=== PATIENT | female | born 1970 | race African-American/Black ===

== ENCOUNTER 2016-05-24 18:00 | Emergency (ER) | payer OTHER ==
[2016-05-24] MEDS ORDERED: ONDANSETRON HCL/PF 4 MG/ 2ML VIAL IVP ONE (18:15)
[2016-05-24] MEDS ORDERED: 0.9 % SODIUM CHLORIDE 1,000 ML IV ONE (18:15)
[2016-05-24] MEDS ORDERED: CloNIDine HCL 0.1 MG TABLET PO ONE (18:35)
[2016-05-24] MEDS ORDERED: DIAZEPAM 5 MG/ML DISP.SYRIN IVP ONE (18:35)
[2016-05-24 19:14] LABS: EOSINOPHILS % 4.4 % (0.0-6.8); LYMPHOCYTES # 1.6 # k/uL (0.6-4.0); MEAN CORPUSCULAR HEMOGLOBIN 28.2 pg (28.0-34.0); MONOCYTES # 0.2 # k/uL (0.0-0.9); MONOCYTES % 6.3 % (0.0-11.0); NEUTROPHILS # 1.8 # k/uL (1.4-7.7)
--- NOTE | 2016-05-24 19:17 | ED Physician Documentation ---
Low Back Pain - HISTORIAN Historian: patient - HPI Stated Complaint: low back pain;polyuria, and nausea Chief Complaint: Low Back Pain/ Injury History: back pain. denies: history of chronic pain: Duration: continues in ED Recent Injury: No Severity: severe Worsened By:: supine Relieved By: nothing Further Comments: yes (45 year old female patient presents with low back pain for the past 3-4 days, c/o increased urination. Patient states she has not taken her BP medications in the past "few months". Denies fever, nausea, vomiting, heavy lifting, fall or injury.) - ROS CONST: no problems CVS/RESP: none EYES/ENT: none MS/SKIN/LYMPH: none Neuro/Psych: none GI/: denies: abdominal pain - PAST HX Other History: other (depression, HTN) Surgeries/Procedures: none - SOCIAL HX Smoking History: non-smoker Alcohol Use: none Drug Use: none - FAMILY HX Family History: cardiac disease - REVIEWED ASSESSMENTS Nursing Assessment Reviewed: Yes Vitals Reviewed: Yes <ROCK VANCE - Last Filed: 05/24/16 19:13> - PAST HX Past History: other (HTN) <Will Craig - Last Filed: 05/25/16 00:23> - PAST HX Allergies/Adverse Reactions: Allergies Allergy/AdvReac Type Severity Reaction Status Date / Time NSAIDS (Non-Steroidal Allergy Verified 05/24/16 19:01 Anti-Inflamma Home Medications: Ambulatory Orders Medication Instructions Recorded NK [NK] 05/24/16 - VITAL SIGNS Vital Signs: Vital Signs Temp Pulse Resp BP Pulse Ox 98.5 F 95 H 16 203/115 99 05/24/16 18:05 05/24/16 18:05 05/24/16 18:05 05/24/16 18:05 05/24/16 18:05 (ROCK VANCE) (Will Cragi) Progress <ROCK VANCE - Last Filed: 05/24/16 19:13> <Will Craig - Last Filed: 05/25/16 00:23> - Progress Progress: [address] Craig (ROCK VANCE) CT Lumbar Spine: The L1-2, L2-3, L3-4, and L5-S1 intervertebral discs are within normal limits. L5 is partially sacralized on the right. Degenerative sclerosis is observed at the articulation between the right L5 transverse process and the right sacral ala. At L4-5 there is posterior central disc protrusion without central canal stenosis or lateralization. (Pt's pain appeared to be above the L4-5 level, at L1-2.) Clonidine 1 mg po Norvasc 5 mg po HCTZ 25 mg po BP 203/115-->154/103. Will re start bp meds. Noti (5/325) 2 tabs po in ER back pain improved. Rx Norvasc 5 mg po qd #30, RF 5 Rx HCTZ 25 mg po qd #30, RF 5 Rx Noti (5/325) 1-2 po q 4-6 h prn # 15. f/u pcp/ortho/neuro re CT (Will Craig) Low Back Pain/Injury - Physical Exam General Appearance: mild distress EENT: eye inspection normal, ENT inspection normal, pharynx normal, no signs of dehydration, MICHELE, no nystagmus, TM's nml Resp/CVS: chest non-tender, breath sounds nml, heart sounds nml, no resp. distress, lungs clear, reg. rate & rhythm Abdomen: non-tender, no organomegaly, no pulsatile mass Back: vertebral point-tendernes (Lumbar, ), muscle spasm. No: CVA tenderness ( negative right and left) Straight Leg Raising: Negative Left, Positive Right Neuro/Psych: oriented x3, motor nml, sensation nml, bilat. 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 Take 1 or 2 tablets by mouth every 4 to 6 hrs as needed for moderate to severe pain. Rx Norvasc 5 mg. Take one by mouth one time daily. Rx Hydrochlorothiazide 25 mg. Take one by mouth one time daily. Home Medications: Ambulatory Orders NK [NK] 05/24/16 Condition: Good Disposition: HOME, SELF-CARE
[2016-05-24 19:26] LABS: eGFR (African) > 60; eGFR (Non-African) > 60
[2016-05-24] MEDS ORDERED: amLODIPine BESYLATE 5 MG TABLET PO ONE (19:27)
[2016-05-24] MEDS ORDERED: HYDROCHLOROTHIAZIDE 25 MG TABLET PO SCH ×2 (20:00→21:00)
[2016-05-24] MEDS ORDERED: HYDROcodone /APAP 5/325 1 EACH TABLET PO STA (20:37)
[2016-05-24] MEDS ORDERED: HYDROCHLOROTHIAZIDE 25 MG TABLET PO ONE (21:05)
[2016-05-25 02:20] VITALS: BP 166/114
[2016-05-25 06:06] LABS: APPEARANCE,URINE CLEAR (CLEAR); COLOR,URINE YELLOW (YELLOW)
[2016-05-25 06:07] LABS: OCCULT BLOOD,URINE TRACE-INTACT (NEGATIVE)
--- NOTE | 2016-05-25 06:35 | Diagnostic Imaging Report ---
Report Submission Date: May 24, 2016 8:13:24 PM SENIOR FIELD SERVICE ENGINEER Patient ~ Study Name: ROMERO QUIGLEY ~ Date: May 24, 2016 6:54:15 PM SENIOR FIELD SERVICE ENGINEER ~ Modality Type: CT\SR Gender: F ~ Description: CT L-SPINE W/O CONTRAS : 74 ~ Institution: [facility] Physician: PINKY AGUILAR ~ ~ ~ ~ Computed tomography of the lumbar spine without contrast HISTORY: ~ Low back pain and right lower extremity pain FINDINGS: ~ Transverse lumbar spine sections are obtained without contrast from which multiplanar reformatted images are generated. ~ The L1-2, L2-3, L3-4, and L5-S1 intervertebral discs are within normal limits. ~ L5 is partially sacralized on the right. ~Degenerative sclerosis is observed at the articulation between the right L5 transverse process and the right sacral ala. ~ At L4-5 there is posterior central disc protrusion without central canal stenosis or lateralization. IMPRESSION: ~ Posterior central L4-5 disc protrusion. ~ Partially sacralized L5 with degenerative change at the right L5-S1 articulation. ~ Electronically signed on May 24, 2016 8:13:24 PM SENIOR FIELD SERVICE ENGINEER by: Ted CASTORENA
== END 2016-05-24 22:15 | disposition home or self-care (01) ==
LOC: ED 18:00
DX: M54.5 Low back pain (principal); I10 Essential (primary) hypertension
CPT/HCPCS: 72131; 80053; 85025; A9270; J2405; J3360; J7030; 81002; 81025; 96374; 96375; 99283; S1016

== ENCOUNTER 2016-07-15 20:51 | Emergency (ER) | payer OTHER ==
--- NOTE | 2016-07-15 21:30 | Diagnostic Imaging Report ---
LILI AVILES [facility] [address] [facility].[address] [address] Report Submission Date: Jul 15, 2016 9:27:33 PM IRRIGATOR GRAVITY FLOW Patient Study Name: ROMERO QUIGLEY Date: Jul 15, 2016 9:13:05 PM IRRIGATOR GRAV[employer]OW Modality Type: CR Gender: F Description: LOWER EXTREMITY : 74 Institution: [facility] Physician: LILI AVILES Left calcaneus 2 views Exam: July 15, 2016. Clinical history: Left heel pain for 4 weeks. Findings: There is soft tissue swelling and edema of the left heel. The calcaneus is intact. No osseous erosion or fracture is identified. The talus and tibiotalar alignment are normal. Impression: Soft tissue swelling and edema of the left heel without evidence of osseous abnormality. Electronically signed on Jul 15, 2016 9:27:33 PM IRRIGATOR GRAVITY FLOW by: Nubia CASTORENA
[2016-07-15] MEDS ORDERED: predniSONE 20 MG TABLET PO ONE (21:40)
[2016-07-15 21:55] VITALS: BP 214/129
--- NOTE | 2016-07-16 02:04 | ED Physician Documentation ---
Lower Extremity Problem - HISTORIAN Historian: patient - HPI Stated Complaint: left heal pain Chief Complaint: Lower Extremity Problem Additional Information: x 1 month Location of Injury: L foot (heel) Onset: days ago (30) Timing: still present Duration: constant, sudden-Onset Recent Injury: No Where: other (all daily life) Severity: moderate Quality: pain, tenderness Exacerbated By: walking Relieved By: rest (rest helps but does not eliminate the problem) Associated Symptoms: denies: chest pain, shortness of breath, rapid heart rate, fainting Further Comments: no - ROS CONST: no problems MS/SKIN/LYMPH: other (pain and tenderness left calcaneal area) CVS/RESP: none GI/: none EYES/ENT: none NERUO/PSYCH: denies: headache, difficulty walking, dizziness, anxiety, depression - PAST HX Past History: none PE Risk Factors: hypertension Other History: hypertension Surgeries/Procedures: none Immunizations: referred to PCP Allergies/Adverse Reactions: Allergies Allergy/AdvReac Type Severity Reaction Status Date / Time NSAIDS (Non-Steroidal Allergy Verified 07/15/16 20:57 Anti-Inflamma Home Medications: Ambulatory Orders Medication Instructions Recorded NK [NK] 05/24/16 - SOCIAL HX Smoking History: non-smoker Alcohol Use: none Drug Use: none - FAMILY HX Family History: no significant history - VITAL SIGNS Vital Signs: Vital Signs Temp Pulse Resp BP Pulse Ox 78 16 214/129 99 07/15/16 21:54 07/15/16 21:54 07/15/16 21:54 07/15/16 21:54 - REVIEWED ASSESSMENTS Nursing Assessment Reviewed: Yes Vitals Reviewed: Yes Progress - Results/Orders Results/Orders: left foot x-ray ordered - Progress Progress: pt stable entire time in er, given 20 mg prednisone p.o. in er Critical Care Note - Critical Care Note Total Time (mins): 0 ED Results Lab/Radiology - Lab Results Lab Results: none ordered - Radiology Radiology Impressions: x-ray neg for abnormality - Orders Orders: ED Orders Category Date Time Status LEFT HEEL [CALCANEUS 2 VIEWS OR MORE] [RAD] Stat Exams 07/15/16 Completed predniSONE [Deltasone] Med 07/15/16 21:40 Discontinued 20 mg PO NOW ONE Lower Extremity Problem - EXAM General Appearance: moderate distress Hips: bilateral hip: non-tender, normal inspection, normal range of motion, no evidence of injury Legs: bilateral: non-tender, normal inspection, normal range of motion, no evidence of injury Knees: bilateral: non-tender, normal inspection, normal range of motion, no evidence of injury Ankle: bilateral: non-tender, normal inspection, normal range of motion, no evidence of injury Foot: left foot: no evidence of injury, soft tissue tenderness (plantar calcaneal aspect), other (no achilles tenderness, no edema, no ligament laxity) DTR - Lower Extremities: knee (R): 2+, knee (L): 2+, ankle (R): 2+, ankle (L): 2 + Neuro/Tendon: normal motor functions, normal tendon functions EENT: eye inspection normal, ENT inspection normal, pharynx normal, no signs of dehydration, MICHELE, no nystagmus, TM's nml RESPIRATORY: no resp distress, chest non-tender, breath sounds normal CVS: reg rate & rhythm JOINT: joints nml, nml ROM VASCULAR: no vascular compromise, pulses full/equal NEURO/PSYCH: oriented X3, CN's nml as tested SKIN: warm/dry, normal color BACK: normal inspection, no CVA tenderness Discharge Clincal Impression: Plantar fasciitis, left Referrals: Jese Tyler MD [Primary Care Provider] - 2 Days Home Medications: Ambulatory Orders NK [NK] 05/24/16 Comments: Discharged with script for prednisone taper 60 mg to 0 mg decreasing by 10 mg/ day over 6 days. Also given script for crutches for 1 week. Clonidine 0.1 mg p.o. daily #15. Follow up with primary care for htn. Condition: Stable Disposition: 01 HOME, SELF-CARE Decision to Admit: NO Decision Time: 21:45
== END 2016-07-15 21:50 | disposition home or self-care (01) ==
LOC: ED 20:51
DX: M72.2 Plantar fascial fibromatosis (principal)
CPT/HCPCS: 73650; 99283

== ENCOUNTER 2016-09-21 13:50 | Outpatient (CLI) | payer OTHER | END 2016-09-21 13:52 | LOC: POD 13:50 | PROVIDERS: ATTEND Podiatrist | DX: G97.52 Postprocedural hemorrhage of a nervous system organ or structure following other procedure (principal) | CPT/HCPCS: G0463 ==

== ENCOUNTER 2017-11-15 12:20 | Observation (INO) | payer OTHER ==
[2017-11-15] MEDS ORDERED: KETOROLAC TROMETHAMINE 60 MG/2 ML VIAL ONE (13:41)
--- NOTE | 2017-11-15 14:29 | ED Physician Documentation ---
General Adult - HISTORIAN Historian: patient - HPI Stated Complaint: LBP Chief Complaint: Low Back Pain/ Injury Additional Information: Patient stated that she started to have some lower back pain yesterday afternoon. No precipitating factor noted. Nothing seems to help with the pain. Is worse with movement and bending twisting. Patient denies any numbness or weakness. Has had a similar episode in May, went away with symptomatic treatment. Patient states that she has a history of HTN. Was started on medication at one time but has stopped taking it. Is not sure what her BP has been. Patient denied that she is been having chest pain chest pressure. Patient been having headaches or visual acuity changes. Onset: days ago (started yesterday) Timing: still present Severity: severe - ROS CONST: no problems. denies: fever, chills EYES/ENT: denies: problems with vision CVS/RESP: denies: chest pain, shortness of breath - PAST HX Past History: hypertension Surgeries/Procedures: none Allergies/Adverse Reactions: Allergies Allergy/AdvReac Type Severity Reaction Status Date / Time NSAIDS (Non-Steroidal Allergy Verified 11/15/17 12:34 Anti-Inflamma Home Medications: Ambulatory Orders Medication Instructions Recorded Tramadol HCl [Ultram] 50 mg PO Q6 PRN #20 tablet 11/15/17 traMADol HCL [Ultram] 50 mg PO Q6H PRN #20 tablet 11/16/17 - SOCIAL HX Smoking History: less than 1 pack/day Alcohol Use: none Drug Use: none - FAMILY HX Family History: Yes - VITAL SIGNS Vital Signs: Vital Signs Temp Pulse Resp BP Pulse Ox 86 16 235/128 99 11/15/17 12:23 11/15/17 12:23 11/15/17 12:23 11/15/17 12:23 - REVIEWED ASSESSMENTS Nursing Assessment Reviewed: Yes Vitals Reviewed: Yes Progress - Progress Progress: 14:12 pain about 20% better with medication. BP has improved some with treatment but is still elevated. Will give apresoline. 15:02 BP has improved some, will monitor 16:32 BP is back up to > 220/110 will give IV labetalol 16:07 BP improved to 167/91 16:38 BP173/94 18:35 BP has been slowly raising agin, will give apresoline IV, admit to OBS ED Results Lab/Radiology - Radiology Radiology Impressions: Examination: Plain film lumbar spine History: SEVERE LOWER BACK PAIN X 2 DAYS, NO KNOWN INJURY. (Hx) Findings: 3 views of the lumbar spine demonstrate normal height. No anterior compression. Right adarsh sacralization L5/S1. No soft tissue abnormalities. Impression: Right L5/S1 hemisacralization. No compression deformity. - Orders Orders: ED Orders Category Date Time Status LUMBAR SPINE XR 2 OR 3 VIEWS [L SPINE 2 OR 3 VIEWS] [ Exams 11/15/17 Ordered RAD] Stat URINE HCG Routine Lab 11/15/17 Uncollected Ketorolac Tromethamine [Toradol] Med 11/15/17 13:41 Discontinued 60 mg .ROUTE .STK-MED ONE General Adult Physical Exam - PHYSICAL EXAM GENERAL APPEARANCE: moderate distress EENT: eye inspection normal, ENT inspection normal, pharynx normal NECK: normal inspection, thyroid normal, supple RESPIRATORY: no resp distress, chest non-tender, breath sounds normal. No: wheezes, rales, rhonchi CVS: reg rate & rhythm, heart sounds normal, equal pulses, no murmur, no gallop ABDOMEN: soft, no organomegaly, normal bowel sounds, no abdominal bruit, no distension BACK: no CVA tenderness, other (patient is having some tenderness along the lower lumbar in the mid lumbar area. No bony abnormalities could be appreciated. There is mild tenderness to palpation to the perispinal muscles with some mild muscle spasms noted.) SKIN: warm/dry, normal color EXTREMITIES: non-tender, normal range of motion NEURO: oriented X3, CN's nml as tested, motor nml, sensation nml, mood/affect nml, other (DTR 2/4 knees and ankles. ) Discharge Clincal Impression: Hypertension Qualifiers: Hypertension type: essential hypertension Qualified Code(s): I10 - Essential ( primary) hypertension Back pain Qualifiers: Back pain location: low back pain Chronicity: acute Back pain laterality: midline Sciatica presence: without sciatica Qualified Code(s): M54.5 - Low back pain Condition: Stable Disposition: 01 HOME, SELF-CARE Decision to Admit: [id number] Date of Decison to Admit: 11/15/17 Decision Time: 18:54
[2017-11-15] MEDS ORDERED: HYDRALAZINE HCL 25 MG TABLET PO ONE (14:31)
--- NOTE | 2017-11-15 15:05 | Diagnostic Imaging Report ---
PARIS LICEA [facility] [address] [facility] [address] [address] Report Submission Date: Nov 15, 2017 3:01:08 PM CDT Patient Study Name: ROMERO QUIGLEY Date: Nov 15, 2017 2:28:00 PM CDT Modality Type: DX Gender: F Description: SPINE : 74 Institution: [facility] Physician: PARIS LICEA Examination: Plain film lumbar spine History: SEVERE LOWER BACK PAIN X 2 DAYS, NO KNOWN INJURY. (Hx) Findings: 3 views of the lumbar spine demonstrate normal height. No anterior compression. Right adarsh sacralization L5/S1. No soft tissue abnormalities. Impression: Right L5/S1 hemisacralization. No compression deformity. Electronically signed on Nov 15, 2017 3:01:08 PM CDT by: Jimmy CASTORENA
[2017-11-15] MEDS ORDERED: LABETALOL HCL IV ONE (15:18)
[2017-11-15] MEDS ORDERED: SODIUM CHLORIDE 0.9% IV ONE (15:18)
[2017-11-15 15:46] LABS: BASOPHILS % 0.5 (0.0-1.5); EOSINOPHILS % 2.8 % (0.0-6.8); MEAN CORPUSCULAR HEMOGLOBIN 28.4 pg (28.0-34.0); MEAN CORPUSCULAR VOLUME 86.2 fl (80.0-100.0); MONOCYTES % 5.1 % (0.0-11.0); NEUTROPHILS # 1.5 # k/uL (1.4-7.7)
[2017-11-15] MEDS ORDERED: ACETAMINOPHEN 1,000 MG/100 ML INJ IV ONE ×3 (16:01→17:24)
[2017-11-15 16:03] LABS: eGFR (African) > 60; eGFR (Non-African) > 60
[2017-11-15] MEDS ORDERED: traMADol HCL 50 MG TABLET PO ONE (16:33)
[2017-11-15] MEDS ORDERED: amLODIPine BESYLATE 5 MG TABLET ONE (18:15)
[2017-11-15] MEDS ORDERED: hydrALAZINE HCL 20 MG/1 ML IVP ONE (18:34)
[2017-11-15] MEDS ORDERED: amLODIPine BESYLATE 5 MG TABLET PO SCH (19:00)
[2017-11-15] MEDS ORDERED: ONDANSETRON HCL/PF 4 MG/ 2ML VIAL IVP PRN (20:09)
[2017-11-15 20:38] VITALS: BMI 34.8
[2017-11-15] MEDS ORDERED: hydrALAZINE HCL 20 MG/1 ML IVP PRN (21:42)
[2017-11-15] MEDS: amLODIPine BESYLATE 5 MG TABLET PO SCH (21:56)
[2017-11-15] MEDS: SALINE FLUSH 10 ML DISP.SYRIN IV SCH (21:57)
[2017-11-15] MEDS: traMADol HCL 50 MG TABLET PO PRN (22:15)
[2017-11-16] MEDS: SALINE FLUSH 10 ML DISP.SYRIN IV SCH (08:08)
[2017-11-16] MEDS: amLODIPine BESYLATE 5 MG TABLET PO SCH (08:09)
[2017-11-16] MEDS: traMADol HCL 50 MG TABLET PO PRN (08:16)
[2017-11-16 09:04] VITALS: BP 154/93
--- NOTE | 2017-12-05 08:10 | Discharge Summary ---
Discharge Summary - Discharge Sumary History of Present Illness: Patient stated that she started to have some lower back pain yesterday afternoon. No precipitating factor noted. Nothing seems to help with the pain. Is worse with movement and bending twisting. Patient denies any numbness or weakness. Has had a similar episode in May, went away with symptomatic treatment. Patient states that she has a history of HTN. Was started on medication at one time but has stopped taking it. Is not sure what her BP has been. Patient denied that she is been having chest pain chest pressure. Patient been having headaches or visual acuity changes. Condition at Discharge: Stable Home Medications: Ambulatory Orders Medication Instructions Recorded Tramadol HCl [Ultram] 50 mg PO Q6 PRN #20 tablet 11/15/17 traMADol HCL [Ultram] 50 mg PO Q6H PRN #20 tablet 11/16/17 Consultations this Visit: None Procedures this Visit: None Allergies/Adverse Reactions: Allergies Allergy/AdvReac Type Severity Reaction Status Date / Time NSAIDS (Non-Steroidal Allergy Verified 11/15/17 12:34 Anti-Inflamma Discharge Summary: Patient was started on amlodipine 10 mg one PO Q day to control her blood pressure. Patient was given hydralazine on a PRN basis. Patient blood pressure did improve during her observation stay. At the time of admission patient blood pressure at 18/99. At the time of discharge it has improved 2154/93. Patient did not have any chest pain or chest pressure. Patient continues to have some pain with her lower back area. This was treated with tramadol. Patient did not have any adverse reaction to the tramadol. At the time of dismissal patient was stable it was felt that she could be followed up on an outpatient basis and patient was discharged in stable condition. - Final Diagnosis (1) Back pain Problems: improved (2) Hypertension Problems: improved
== END 2017-11-16 11:10 | disposition home or self-care (01) ==
LOC: ED 12:20 → INTOOBSV 19:33 → SOUTH 19:33
PROVIDERS: ADMIT Family Medicine; ATTEND Family Medicine
DX: I10 Essential (primary) hypertension (principal); M54.5 Low back pain; F17.210 Nicotine dependence, cigarettes, uncomplicated
CPT/HCPCS: 72100; 80053; 81025; 85025; G0378; J0360; J1885; J3490; J7050; 96365; 96367; 96375; 99217; G0379; S1016

== ENCOUNTER 2018-05-01 13:10 | Emergency (ER) | payer OTHER ==
[2018-05-01] MEDS ORDERED: KETOROLAC TROMETHAMINE 60 MG/2 ML VIAL IM ONE (13:44)
[2018-05-01] MEDS ORDERED: CloNIDine HCL 0.1 MG TABLET PO ONE (13:44)
[2018-05-01] MEDS ORDERED: ORPHENADRINE CITRATE 60 MG/2 ML ML IM ONE (13:44)
--- NOTE | 2018-05-01 13:50 | ED Physician Documentation ---
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 Patient reports she is out of her blood pressure medication, has not been able to see doctor to get refills due to financial restraints.) - ROS CONST: no problems CVS/RESP: none EYES/ENT: none MS/SKIN/LYMPH: none Neuro/Psych: none GI/: denies: abdominal pain - PAST HX Past History: back pain Other History: hypertension Allergies/Adverse Reactions: Allergies Allergy/AdvReac Type Severity Reaction Status Date / Time NSAIDS (Non-Steroidal AdvReac Intermediate Nausea/Vomi Verified 05/01/18 13:29 Anti-Inflamma ting - SOCIAL HX Smoking History: non-smoker - FAMILY HX Family History: denies: none - VITAL SIGNS Vital Signs: Vital Signs Temp Pulse Resp BP Pulse Ox 97.9 F 82 18 180/80 98 05/01/18 14:59 05/01/18 14:59 05/01/18 14:59 05/01/18 14:59 05/01/18 14:59 - REVIEWED ASSESSMENTS Nursing Assessment Reviewed: Yes Vitals Reviewed: Yes Progress - Progress Progress: Extensive education on hypertension and non-compliance with medications. Verbalized understanding. BP improved after .2mg clonidine. Allergy to NSAID - GI upset. Refilled home medications. ED Results Lab/Radiology - Orders Orders: ED Orders Category Date Time Status CloNIDine HCL [Catapress] Med 05/01/18 13:44 Discontinued 0.2 mg PO NOW ONE Ketorolac Tromethamine [Toradol] Med 05/01/18 13:44 Discontinued 60 mg IM NOW ONE Orphenadrine Citrate [Norflex] Med 05/01/18 13:44 Discontinued 60 mg IM NOW ONE Low Back Pain/Injury - Physical Exam General Appearance: mild distress EENT: eye inspection normal, MICHELE Resp/CVS: chest non-tender, breath sounds nml, heart sounds nml, no resp. distress, lungs clear, reg. rate & rhythm Abdomen: non-tender, no organomegaly, no pulsatile mass Back: non-tender, painless ROM, muscle spasm, other (pain in L-spine paraspinous muscles. ). No: vertebral point-tendernes, CVA tenderness Straight Leg Raising: Negative Left, Negative Right Neuro/Psych: oriented x3, motor nml, sensation nml, bilat. 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 Limit your dose to less than 4 G per day. You may want to try massage, over the counter lidocaine patches, biofreeze, zhane rosales or aspercream . If you are unable to bear weight and continuing to have significant pain on day 3-4; see your PCP for re-evaluation and additional xrays. Condition: Stable Disposition: 01 HOME, SELF-CARE Decision to Admit: NO Decision Time: 14:49
[2018-05-01 15:00] VITALS: BP 180/80
== END 2018-05-01 14:59 | disposition home or self-care (01) ==
LOC: ED 13:10
DX: I10 Essential (primary) hypertension (principal); M54.5 Low back pain
CPT/HCPCS: 96372; 99283; 99284; J1885; J2360

== ENCOUNTER 2018-07-07 11:52 | Outpatient (CLI) | payer OTHER | END 2018-07-07 12:00 | LOC: LAB 11:52 | PROVIDERS: ATTEND Family Medicine | DX: R63.5 Abnormal weight gain (principal) | CPT/HCPCS: 36415; 84443 ==

== ENCOUNTER 2018-08-08 21:45 | Emergency (ER) | payer OTHER ==
[2018-08-08 22:25] LABS: MEAN CORPUSCULAR HEMOGLOBIN 28.4 pg (28.0-34.0)
[2018-08-08 22:26] LABS: BASOPHILS % 0.6 (0.0-1.5); EOSINOPHILS % 3.2 % (0.0-6.8); MONOCYTES % 7.1 % (0.0-11.0); NEUTROPHILS # 1.8 # k/uL (1.4-7.7)
[2018-08-08] MEDS: KETOROLAC TROMETHAMINE 30 MG/1ML VIAL IVP ONE (22:27)
[2018-08-08] MEDS: hydrALAZINE HCL 20 MG/1 ML IVP ONE (22:27)
[2018-08-08 22:39] LABS: eGFR (Non-African) > 60
[2018-08-08] MEDS: ORPHENADRINE CITRATE 60 MG/2 ML ML IV ONE (22:50)
--- NOTE | 2018-08-08 22:52 | ED Physician Documentation ---
Low Back Pain - HISTORIAN Historian: patient - HPI Stated Complaint: Back pain Chief Complaint: Low Back Pain/ Injury History: back pain Onset: days ago Duration: worse Context: lifting, bending Where: work Other Injuries: back. denies: neck, head Severity: moderate Quality: similar- prior back pain Further Comments: yes (48 year old female patient presents with low back pain related to lifting and carrying heavy objects at work. 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 denies: calf pain, neck pain, joint pain, leg swelling, rash, swollen glands, leg pain, ankle swelling, other Neuro/Psych: none GI/: denies: abdominal pain, black stools - PAST HX Past History: back pain Other History: hypertension Allergies/Adverse Reactions: Allergies Allergy/AdvReac Type Severity Reaction Status Date / Time No Known Allergies Allergy Verified 08/08/18 22:08 Home Medications: Ambulatory Orders Medication Instructions Recorded Baclofen [Liorasal] 10 mg PO TID PRN #30 tablet 08/08/18 Methylprednisolone [Medrol] 4 mg PO DAILY #1 tab.ds.pk 08/08/18 Metoprolol Tartrate [Lopressor] 25 mg PO BID #60 tablet 08/08/18 amLODIPine BESYLATE [Norvasc] 10 mg PO 0900 #30 tablet 08/08/18 - SOCIAL HX Smoking History: cigarettes - FAMILY HX Family History: denies: none - VITAL SIGNS Vital Signs: Vital Signs Temp Pulse Resp BP Pulse Ox 97.7 F 110 H 16 121/102 99 08/08/18 21:50 08/08/18 23:04 08/08/18 23:04 08/08/18 23:04 08/08/18 23:04 - REVIEWED ASSESSMENTS Nursing Assessment Reviewed: Yes Vitals Reviewed: Yes Progress - Progress Progress: BP improved with hydralazine and po norvasc. Renewed prescriptions Medicated toradol and norflex IM. ED Results Lab/Radiology - Lab Results Lab Results: Lab Results 08/08/18 08/08/18 08/08/18 22:52 22:05 22:05 WBC 4.60 K/ul K/ul (4.00-12.00) RBC 4.55 M/ul M/ul (3.90-5.20) Hgb 12.9 g/dL g/dL (12.0-16.0) Hct 39.7 % % (34.5-46.5) MCV 87.0 fl fl (80.0-100.0) MCH 28.4 pg pg (28.0-34.0) MCHC 32.5 g/dL g/dL (30.0-36.0) RDW 14.7 % H % (11.3-14.3) Plt Count 232 K/mm3 K/mm3 (130-400) Neut % (Auto) 39.4 % % (39.0-79.0) Lymph % (Auto) 49.7 % % (16.0-50.0) [place] % (Auto) 7.1 % % (0.0-11.0) Eos % (Auto) 3.2 % % (0.0-6.8) Baso % (Auto) 0.6 (0.0-1.5) Neut # (Auto) 1.8 # k/uL # k/uL (1.4-7.7) Lymph # (Auto) 2.3 # k/uL # k/uL (0.6-4.0) [place] # (Auto) 0.3 # k/uL # k/uL (0.0-0.9) Eos # (Auto) 0.2 # k/uL # k/uL (0.0-0.6) Baso # (Auto) 0.0 # k/uL # k/uL (0.0-0.5) Sodium 143 mmol/L mmol/L (136-145) Potassium 3.5 mmol/L mmol/L (3.5-5.1) Chloride 101 mmol/L mmol/L (98-107) Carbon Dioxide 30 mmol/L mmol/L (22-30) BUN 13 mg/dL mg/dL (7-17) Creatinine 0.76 mg/dL mg/dL (0.52-1.04) Estimated Creat Clear 171 Est GFR ( Amer) > 60 (60 - ) Est GFR (Non-Af Amer) > 60 (60 - ) Glucose 98 mg/dL mg/dL (74-106) Calcium 10.0 mg/dL mg/dL (8.4-10.2) Total Bilirubin 0.2 mg/dL mg/dL (0.2-1.3) AST 36 U/L U/L (15-46) ALT 14 U/L U/L (13-69) Alkaline Phosphatase 61 U/L U/L (38-126) Total Protein 9.1 g/dL H g/dL (6.3-8.2) Albumin 4.5 g/dL g/dL (3.5-5.0) Urine Color Yellow (YELLOW) Urine Appearance Clear (CLEAR) Urine pH 7.0 (5.0 - 8.0) Ur Specific [place] 1.020 (1.010-1.030) Urine Protein 2+ mg/dL H mg/dL (NEGATIVE) Urine Ketones Negative mg/dL mg/dL (NEGATIVE) Urine Occult Blood Trace-intact H (NEGATIVE) Urine Nitrite Negative (NEGATIVE) Urine Bilirubin Negative (NEGATIVE) Urine Urobilinogen 0.2 Eu Eu (0.2-1.0) Ur Leukocyte Esterase Negative (NEGATIVE) Urine Glucose Negative mg/dL mg/dL (NEGATIVE) - Orders Orders: ED Orders Category Date Time Status Continuous EKG monitoring Q30M Care 08/08/18 22:05 Active Continuous Pulse Oximetry Q30M Care 08/08/18 22:[address] IV Lock 1T Care 08/08/18 22:03 Active CBC/PLATELET/DIFF Stat Lab 08/08/18 22:05 Completed CMP Stat Lab 08/08/18 22:05 Completed UA MACRO DIP ONLY Stat Lab 08/08/18 22:52 Completed Ketorolac Tromethamine [Toradol] Med 08/08/18 22:04 Discontinued 30 mg IVP NOW ONE Orphenadrine Citrate [Norflex] Med 08/08/18 22:48 Discontinued 60 mg IV NOW ONE amLODIPine BESYLATE [Norvasc] Med 08/08/18 22:33 Discontinued 5 mg PO NOW ONE hydrALAZINE HCL [Apresoline] Med 08/08/18 22:04 Discontinued 10 mg IVP NOW ONE Low Back Pain/Injury - Physical Exam General Appearance: mild distress EENT: eye inspection normal, MICHELE Resp/CVS: chest non-tender, breath sounds nml, heart sounds nml, no resp. distress, lungs clear, reg. rate & rhythm Back: muscle spasm Neuro/Psych: oriented x3, motor nml, sensation nml, bilat. doriflexion nml, reflexes nml, mood/affect nml Skin: normal color, warm/dry, NR, INT, PAL, DR Extremities: non-tender, normal range of motion, no evidence of injury, no edema, J, FUEL AGENT Discharge Clincal Impression: Hypertension Qualifiers: Hypertension type: essential hypertension Qualified Code(s): I10 - Essential (primary) hypertension Back pain Qualifiers: Back pain location: low back pain Chronicity: acute Back pain laterality: bilateral Sciatica presence: without sciatica Qualified Code(s): M54.5 - Low back pain Prescriptions: amLODIPine BESYLATE [Norvasc] 10 mg PO 0900 #30 tablet Baclofen [Liorasal] 10 mg PO TID PRN #30 tablet PRN Reason: Spasms Methylprednisolone [Medrol] 4 mg PO DAILY #1 tab.ds.pk Metoprolol Tartrate [Lopressor] 25 mg PO BID #60 tablet Referrals: Jese Tyler MD [Primary Care Provider] - 2 Days Additional Instructions: 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 Back strain: Ice Rest Elevation You may use Tylenol every 4hour as needed for pain. Limit your dose to less than 4 G per day. You may want to try massage, over the counter lidocaine patches, biofreeze, zhane rosales or aspercream . If you are unable to bear weight and continuing to have significant pain on day 3-4; see your PCP for re-evaluation and additional xrays. Condition: Stable Disposition: 01 HOME, SELF-CARE Decision to Admit: NO Decision Time: 22:52
[2018-08-08] MEDS: amLODIPine BESYLATE 5 MG TABLET PO ONE (22:53)
[2018-08-08 23:05] VITALS: BP 121/102
[2018-08-10 07:58] LABS: APPEARANCE,URINE CLEAR (CLEAR); COLOR,URINE YELLOW (YELLOW); OCCULT BLOOD,URINE TRACE-INTACT (NEGATIVE); UROBILINOGEN URINE 0.2 Eu (0.2-1.0)
== END 2018-08-08 23:04 | disposition home or self-care (01) ==
LOC: ED 21:45
DX: I10 Essential (primary) hypertension (principal); M54.5 Low back pain; Z72.0 Tobacco use
CPT/HCPCS: 36415; 80053; 81002; 85025; 96374; 96375; 99283; 99284; J0360; J1885; J2360; S1016